=== PATIENT | male | born 1990 | race African-American/Black ===

== ENCOUNTER 2017-03-16 06:52 | Emergency (ER) | payer SELFPAY ==
[2017-03-16] MEDS ORDERED: Adacel (T-DAP) 0.5 ML VIAL ONE (07:26)
[2017-03-16] MEDS ORDERED: Lidocaine 1% w/Epinephrine 1:100K 30 ML VIAL ONE (07:28)
[2017-03-16] MEDS ORDERED: Bacitracin Zinc 1 Packet ONE (08:30)
[2017-03-16] MEDS ORDERED: Sulfameth/Trimethoprim DS 800-160mg TAB ONE (08:37)
--- NOTE | 2017-03-16 18:55 | RAD ---
CHEST TWO VIEWS 03/16/17 Comparison is made with a 07/12/14 study done at [facility]. The heart is normal in size. The mediastinum shows no widening or shift. The lungs are fully inflate d and clear. I see no sign of pneumothorax, pleural effusion or focal pulmonary infiltrate. No fract ures or opaque foreign bodies were seen. IMPRESSION: No acute thoracic finding. POS: HOME
--- NOTE | 2017-03-16 19:12 | RAD ---
LEFT HUMERUS TWO VIEWS 03/16/17 While no fracture is present, there is a laceration of the upper arm laterally over the deltoid. An opaque foreign body is seen in the soft tissues near the laceration site. No bony abnormalities were seen. There is an old healed fracture of the distal left clavicle. IMPRESSION: Laceration with foreign body of the left upper arm. Code T POS: HOME
== END 2017-03-16 08:50 | disposition home or self-care (01) ==
LOC: BURERS 06:52
DX: S21.111A Laceration without foreign body of right front wall of thorax without penetration into thoracic cavity, initial encounter (principal); S41.112A Laceration without foreign body of left upper arm, initial encounter; F32.9 Major depressive disorder, single episode, unspecified; F17.210 Nicotine dependence, cigarettes, uncomplicated; Z23 Encounter for immunization; W26.0XXA Contact with knife, initial encounter
CPT/HCPCS: 12004; 71020; 90471; 90715; J2001

== ENCOUNTER 2024-03-27 21:05 | Emergency (ER) | payer OTHER ==
[2024-03-27] MEDS ORDERED: Ondansetron PF 4 MG/2 ML Vial ONE (21:47)
[2024-03-27 21:49] LABS: #Basophils 0.1 thou/uL (0.0-0.2); #Lymphocytes 2.4 thou/uL (1.20-3.40); #Monocytes 0.3 thou/uL (0.11-0.59); %Basophils 1.2 % (0.0-1.0); %Eosinophils 0.3 % (0.0-10.0); %Lymphocytes 40.8 % (21.0-51.0); %Monocytes 5.5 % (0.0-10.0); %Neutrophils 52.1 % (42.0-75.0); Hematocrit 44.3 % (42.0-52.0); Mean Corpuscular HGB CONC 36.1 g/dL (32.0-36.0); Mean Corpuscular Hemoglobin 29.9 pg (27.0-31.0); Mean Corpuscular Volume 82.8 fl (78.0-98.0); Mean Platelet Volume 6.2 fL (7.4-10.4); Platelet Count 296 10x3/uL (130-400); RBC Distribution Width 10.7 % (11.5-14.5); Red Blood Cell (RBC) Count 5.35 mill/uL (4.70-6.10); White Blood Cell (WBC) Count 5.8 10x3/uL (4.8-10.8)
[2024-03-27 22:09] LABS: Bilirubin Negative (Negative); Blood, Urine Negative (Negative); Clarity Clear (Clear); Glucose, Urine (Dipstick) Negative (Negative); Ketone, Urine Negative (Negative); Leukocyte Negative (Negative); Nitrite Negative (Negative); Protein, Urine (Dipstick) Negative (Neg-Trace); Specific Gravity, Urine 1.015 (1.005-1.030); Urobilinogen 0.2 mg/dL (Less than 2); pH, Urine 7.5 (5.0-9.0)
[2024-03-27 22:12] LABS: ALT (SGPT) 12 U/L (8-55); AST (SGOT) 14 U/L (5-34); Albumin 4.6 g/dL (3.5-5.0); Alkaline Phosphatase 47 U/L (40-110); Anion Gap 14 mmol/L (10-20); BUN (Urea Nitrogen) 9 mg/dL (8.9-20.6); Bilirubin, Total 1.5 mg/dL (0.2-1.2); Calc. Creatinine Clearance 0 mL/min (70-130); Carbon Dioxide 25 mmol/L (22-29); Chloride 106 mmol/L (98-107); Estimated GFR 96; Globulin 2.3 g/dL (2.4-3.5); Glucose 95 mg/dL (70-105); Lipase 5 U/L (8-78); Potassium 3.8 mmol/L (3.5-5.1); Protein, Total 6.9 g/dL (6.0-8.3); Sodium 141 mmol/L (136-145)
[2024-03-27 22:13] LABS: Troponin I Less than 0.010 ng/mL (< 0.028)
[2024-03-27] MEDS ORDERED: Lisinopril 20 MG TAB ONE (22:20)
[2024-03-27 22:21] LABS: Amphetamine Not Detected (NotDetected); Bacteria/HPF Rare-Few HPF (None Seen); Barbiturates Screen Not Detected (NotDetected); Benzodiazepine Screen Not Detected (NotDetected); CAUTI Indications for Culture Dysuria,urgency,freq; Cocaine Metabolite Screen Not Detected (NotDetected); Methadone Not Detected (NotDetected); Methamphetamine Not Detected (NotDetected); Opiate Screen Not Detected (NotDetected); Oxycodone Screen Not Detected (NotDetected); Phencyclidine (PCP) Not Detected (NotDetected); RBC/HPF None Seen HPF (0-3); Squamous Epithelial 0-3 HPF (0-3); THC/Cannabinoid Screen Not Detected (NotDetected); Tricyclic Screen Not Detected (NotDetected); WBC/HPF 0-3 HPF (0-3)
[2024-03-27 22:22] LABS: Urine Culture Reflex No No
== END 2024-03-27 22:42 | disposition home or self-care (01) ==
LOC: BURERS 21:05
DX: K59.00 Constipation, unspecified (principal); R11.2 Nausea with vomiting, unspecified; R03.0 Elevated blood-pressure reading, without diagnosis of hypertension
CPT/HCPCS: 71045; 80053; 80306; 81001; 83690; 84443; 84484; 85025; 93005; 96361; 96374; J2405